=== PATIENT | male | born 1990 | race Caucasian/White ===

== ENCOUNTER 2016-09-05 08:30 | Emergency (ER) | payer MEDICAID ==
[~2016-09-05] VITALS: Ht 177.8 cm; Wt 72.6 kg
[~2016-09-05 08:30] MED LIST: ANAPROX DS550 MG PO; BENTYL10 MG; BENTYL10 MG PO; CALCIUM + D 5001 TAB PO; CIPRODEX 0.3%-7.5 ML OT; CIPROFLOXACIN500 MG PO; EES400 MG PO; FLAGYL500 MG PO; Lopressor25 MG PO; MOTRIN600 MG PO; MOTRIN800 MG PO; NKHM; RONDEC DM 120120 ML PO; TRAMADOL HCL50 MG PO; ULTRAM50 MG PO; VITAMIN D50000 I2; ZANTAC150 MG PO; ZITHROMAX Z PA250 MG PO; ZOFRAN4 MG PO
[2016-09-05 08:41] VITALS: BP 136/84
[2016-09-05 08:54] LABS: BASO % 0.5 % (0.0-1.0); EOS % 0.1 % (1.0-4.0); HEMATOCRIT 42.7 % (42.0-52.0); HEMOGLOBIN 15.1 g/dl (14.0-18.0); LYMPH # 1.7 10*3/uL (1.3-4.4); LYMPH % 21.4 % (27.0-41.0); MEAN CELL VOLUME 82.4 fl (80.0-94.0); MEAN CORPUSCULAR HGB 29.2 pg (27.0-31.0); MEAN CORPUSCULAR HGB CONC 35.4 g/dl (33.0-37.0); MEAN PLATELET VOLUME 9.4 fl (9.6-12.3); MONO # 0.9 10*3/uL (0.1-1.0); MONO % 10.7 % (3.0-9.0); NEUT # 5.3 10*3/uL (2.3-7.9); NEUT % 66.9 % (47.0-73.0); PLATELET COUNT AUTOMATED 192 10*3/uL (130-400); RED BLOOD COUNT 5.18 10*6/uL (4.50-5.90); RED CELL DISTRI WIDTH 12.7 % (0-14.5)
[2016-09-05 09:09] LABS: ALBUMIN 3.8 gm/dl (3.1-4.5); ALKALINE PHOSPHATASE 67 U/L (45-117); BILIRUBIN, TOTAL 0.6 mg/dl (0.2-1.0); BUN 9 mg/dl (7-24); CARBON DIOXIDE 25 mmol/L (21-32); CHLORIDE 102 mmol/L (98-107); EST GLOM FILT AFRICAN AMERICAN > 60 ml/min; GLUCOSE 98 mg/dL (65-99); POTASSIUM 3.1 mmol/L (3.5-5.1); SGOT/AST 16 IU/L (3-35); SGPT/ALT 18 U/L (12-78); SODIUM 137 mmol/L (136-145); TOTAL PROTEIN 7.5 gm/dL (6.4-8.2)
[2016-09-05] MEDS ORDERED: Zofran4 MG PO (10:24)
[2016-09-05 10:48] LABS: BILIRUBIN 1+ (NEGATIVE); BLOOD TRACE-LYSED (NEGATIVE); CLARITY CLEAR (CLEAR); COLOR YELLOW (YELLOW); GLUCOSE NEGATIVE (NEGATIVE); KETONE TRACE (NEGATIVE); LEUKO ESTERASE NEGATIVE (NEGATIVE); NITRITE NEGATIVE (NEGATIVE); PROTEIN TRACE (NEGATIVE); SPECIFIC GRAVITY >= 1.030 (1.005-1.030); UROBILINOGEN 0.2 E.U./dl (0.2-1.0)
[2016-09-05 11:02] LABS: BACTERIA 1+; EPITHELIAL CELLS 0-2; MUCOUS 3+; URINE REFLEX COMMENT YES (NO)
== END 2016-09-05 11:53 | disposition home or self-care (01) ==
LOC: ED 08:30
PROVIDERS: Emergency Medicine
DX: K52.9 Noninfective gastroenteritis and colitis, unspecified (principal); E87.6 Hypokalemia; K92.2 Gastrointestinal hemorrhage, unspecified; I10 Essential (primary) hypertension; E86.0 Dehydration; Z88.0 Allergy status to penicillin; Z88.1 Allergy status to other antibiotic agents; Z88.8 Allergy status to other drugs, medicaments and biological substances

== ENCOUNTER 2018-09-10 01:51 | Emergency (ER) | payer OTHER ==
[~2018-09-10] VITALS: Ht 180.3 cm; Wt 72.6 kg
[2018-09-10 01:51] VITALS: BP 135/72
[~2018-09-10 01:51] MED LIST changes: +Zofran4 MG PO
[2018-09-10] MEDS ORDERED: ONDANSETRON4 MG SL (02:08)
== END 2018-09-10 02:14 | disposition home or self-care (01) ==
LOC: ED 01:51
DX: R11.10 Vomiting, unspecified (principal); F17.200 Nicotine dependence, unspecified, uncomplicated; Z88.0 Allergy status to penicillin; Z88.2 Allergy status to sulfonamides; Z88.8 Allergy status to other drugs, medicaments and biological substances

== ENCOUNTER 2021-12-15 11:27 | Emergency (ER) | payer OTHER ==
[~2021-12-15] VITALS: Wt 81.6 kg
[~2021-12-15 11:27] MED LIST changes: +ONDANSETRON4 MG SL
[2021-12-15 11:30] VITALS: BP 153/90
[2021-12-15 14:50] LABS: BILIRUBIN Negative (Negative); BLOOD Negative (Negative); CLARITY Clear (Clear); COLOR Yellow (Yellow); GLUCOSE Negative (Negative); KETONE Negative (Negative); LEUKO ESTERASE 1+ (Negative); NITRITE Negative (Negative); PH 6.5 (4.5-8.0); SPECIFIC GRAVITY 1.015 (1.001-1.030)
[2021-12-15 15:10] LABS: BACTERIA 1+
[2021-12-15] MEDS ORDERED: LEVOFLOXACIN500 MG PO (15:26)
== END 2021-12-15 15:38 | disposition home or self-care (01) ==
LOC: ED 11:27
PROVIDERS: Internal Medicine
DX: N39.0 Urinary tract infection, site not specified (principal); R31.9 Hematuria, unspecified; Z88.0 Allergy status to penicillin; Z88.2 Allergy status to sulfonamides; Z88.8 Allergy status to other drugs, medicaments and biological substances

== ENCOUNTER 2022-12-13 08:19 | Emergency (ER) | payer OTHER ==
[~2022-12-13] VITALS: Ht 180.3 cm; Wt 81.6 kg
[~2022-12-13 08:19] MED LIST changes: +LEVOFLOXACIN500 MG PO
[2022-12-13 08:24] VITALS: BP 151/85
[2022-12-13] MEDS ORDERED: CLINDAMYCIN HC300 MG PO (08:32)
== END 2022-12-13 08:34 | disposition home or self-care (01) ==
LOC: ED 08:19
DX: J02.9 Acute pharyngitis, unspecified (principal); I10 Essential (primary) hypertension; Z88.0 Allergy status to penicillin; Z88.2 Allergy status to sulfonamides; Z88.8 Allergy status to other drugs, medicaments and biological substances; Z98.890 Other specified postprocedural states

== ENCOUNTER → 2023-01-06 | Outpatient (CLI) | payer OTHER ==
[~2023-01-06] MED LIST changes: +CLINDAMYCIN HC300 MG PO
== END | disposition home or self-care (01) ==
LOC: RAD 10:43
PROVIDERS: ATTEND Family Medicine
DX: M54.42 Lumbago with sciatica, left side (principal)

== ENCOUNTER → 2023-01-19 | Outpatient (CLI) | payer OTHER | END | disposition home or self-care (01) | LOC: RAD 15:50 | PROVIDERS: ATTEND Family Medicine | DX: M54.50 Low back pain, unspecified (principal) ==

== ENCOUNTER 2023-06-08 11:37 | Emergency (ER) | payer OTHER ==
[~2023-06-08] VITALS: Ht 180.3 cm; Wt 90.7 kg
[2023-06-08 12:25] LABS: BASO # 0.1 10*3/uL (0.0-0.1); BASO % 0.7 % (0.0-1.0); EOS # 0.3 10*3/uL (0.0-0.4); EOS % 3.5 % (1.0-4.0); HEMATOCRIT 44.8 % (42.0-52.0); LYMPH # 3.2 10*3/uL (1.3-4.4); LYMPH % 37.6 % (27.0-41.0); MEAN CELL VOLUME 80.7 fl (80.0-94.0); MEAN CORPUSCULAR HGB 27.4 pg (27.0-31.0); MEAN CORPUSCULAR HGB CONC 33.9 g/dl (33.0-37.0); MONO # 0.5 10*3/uL (0.1-1.0); MONO % 5.7 % (3.0-9.0); NEUT # 4.5 10*3/uL (2.3-7.9); NEUT % 52.1 % (47.0-73.0); PLATELET COUNT AUTOMATED 298 10*3/uL (130-400); RED BLOOD COUNT 5.55 10*6/uL (4.50-5.90); RED CELL DISTRI WIDTH 12.7 % (0-14.5); WHITE BLOOD COUNT 8.6 10*3/uL (4.8-10.8)
[2023-06-08 12:50] LABS: ALKALINE PHOSPHATASE 95 U/L (46-116); BUN 5 mg/dl (9-23); CHLORIDE 102 mmol/L (98-107); POTASSIUM 3.8 mmol/L (3.4-5.1); SGPT/ALT 44 U/L (10-49); TOTAL PROTEIN 7.9 gm/dL (6.0-8.0)
[2023-06-08] MEDS ORDERED: NORVASC10 MG PO (13:55)
[2023-06-08 14:01] VITALS: BP 136/97
== END 2023-06-08 14:30 | disposition home or self-care (01) ==
LOC: ED 11:37
PROVIDERS: Nurse Practitioner
DX: I10 Essential (primary) hypertension (principal); R03.0 Elevated blood-pressure reading, without diagnosis of hypertension; F90.9 Attention-deficit hyperactivity disorder, unspecified type; Z88.0 Allergy status to penicillin; Z88.2 Allergy status to sulfonamides; Z88.8 Allergy status to other drugs, medicaments and biological substances; Z98.890 Other specified postprocedural states

== ENCOUNTER 2023-08-28 11:47 | Emergency (ER) | payer OTHER ==
[~2023-08-28] VITALS: Ht 180.3 cm; Wt 90.7 kg
[~2023-08-28 11:47] MED LIST changes: +NORVASC10 MG PO
[2023-08-28 12:26] VITALS: BP 140/97
[2023-08-28] MEDS ORDERED: DOXYCYCLINE HY100 M3 PO (13:01)
== END 2023-08-28 13:09 | disposition home or self-care (01) ==
LOC: ED 11:47
DX: S60.011A Contusion of right thumb without damage to nail, initial encounter (principal); I10 Essential (primary) hypertension; F90.9 Attention-deficit hyperactivity disorder, unspecified type; Z88.0 Allergy status to penicillin; Z88.2 Allergy status to sulfonamides; Z88.8 Allergy status to other drugs, medicaments and biological substances; Z98.890 Other specified postprocedural states; Z87.891 Personal history of nicotine dependence; W51.XXXA Accidental striking against or bumped into by another person, initial encounter; Y93.89 Activity, other specified; Y92.89 Other specified places as the place of occurrence of the external cause; Y99.8 Other external cause status

== ENCOUNTER 2023-10-10 14:54 | Emergency (ER) | payer OTHER ==
[~2023-10-10] VITALS: Ht 180.3 cm; Wt 90.7 kg
[~2023-10-10 14:54] MED LIST changes: +DOXYCYCLINE HY100 M3 PO
[2023-10-10] MEDS ORDERED: ACETAMINOPHEN 325 MG TAB PO ONE (15:10)
[2023-10-10 16:13] LABS: BASO # 0.1 10*3/uL (0.0-0.1); BASO % 0.8 % (0.0-1.0); EOS # 0.3 10*3/uL (0.0-0.4); EOS % 3.6 % (1.0-4.0); HEMATOCRIT 45.2 % (42.0-52.0); LYMPH # 2.2 10*3/uL (1.3-4.4); LYMPH % 30.6 % (27.0-41.0); MEAN CELL VOLUME 82.6 fl (80.0-94.0); MEAN CORPUSCULAR HGB 27.4 pg (27.0-31.0); MEAN CORPUSCULAR HGB CONC 33.2 g/dl (33.0-37.0); MEAN PLATELET VOLUME 9.1 fl (9.6-12.3); MONO # 0.6 10*3/uL (0.1-1.0); MONO % 8.3 % (3.0-9.0); NEUT % 56.3 % (47.0-73.0); PLATELET COUNT AUTOMATED 294 10*3/uL (130-400); RED BLOOD COUNT 5.47 10*6/uL (4.50-5.90); WHITE BLOOD COUNT 7.2 10*3/uL (4.8-10.8)
[2023-10-10 16:35] LABS: ALKALINE PHOSPHATASE 103 U/L (46-116); BUN 7 mg/dl (9-23); CHLORIDE 104 mmol/L (98-107); POTASSIUM 3.7 mmol/L (3.4-5.1); SGPT/ALT 43 U/L (5-49); TOTAL PROTEIN 7.6 gm/dL (6.0-8.0)
[2023-10-10 16:59] VITALS: BP 126/88
[2023-10-10] MEDS ORDERED: NORVASC10 MG PO (17:01)
== END 2023-10-10 17:23 | disposition home or self-care (01) ==
LOC: ED 14:54
PROVIDERS: Physician Assistant Medical
DX: I10 Essential (primary) hypertension (principal); F90.9 Attention-deficit hyperactivity disorder, unspecified type; R51.9 Headache, unspecified; Z88.0 Allergy status to penicillin; Z88.2 Allergy status to sulfonamides; Z88.8 Allergy status to other drugs, medicaments and biological substances; Z98.890 Other specified postprocedural states

== ENCOUNTER 2024-02-14 10:51 | Emergency (ER) | payer OTHER ==
[~2024-02-14] VITALS: Ht 180.3 cm; Wt 95.3 kg
[2024-02-14 10:58] VITALS: BP 136/92
[2024-02-14] MEDS ORDERED: MEDROL DOSEPAK4 MG PO (11:07)
[2024-02-14] MEDS ORDERED: methylPREDNISolone sod succ 125 MG VIAL IM ONE (11:10)
== END 2024-02-14 11:19 | disposition home or self-care (01) ==
LOC: ED 10:51
DX: J02.9 Acute pharyngitis, unspecified (principal); F90.9 Attention-deficit hyperactivity disorder, unspecified type; I10 Essential (primary) hypertension; Z88.0 Allergy status to penicillin; Z88.2 Allergy status to sulfonamides; Z88.8 Allergy status to other drugs, medicaments and biological substances; Z98.890 Other specified postprocedural states

== ENCOUNTER 2025-04-21 19:16 | Emergency (ER) | payer OTHER ==
[~2025-04-21] VITALS: Ht 180.3 cm; Wt 92.5 kg
[~2025-04-21 19:16] MED LIST changes: +MEDROL DOSEPAK4 MG PO
[2025-04-21 19:26] VITALS: BP 148/100
== END 2025-04-21 21:15 | disposition home or self-care (01) ==
LOC: ED 19:16
DX: S86.912A Strain of unspecified muscle(s) and tendon(s) at lower leg level, left leg, initial encounter (principal); I10 Essential (primary) hypertension; Z88.0 Allergy status to penicillin; Z88.2 Allergy status to sulfonamides; Z88.8 Allergy status to other drugs, medicaments and biological substances; Z79.899 Other long term (current) drug therapy; X50.1XXA Overexertion from prolonged static or awkward postures, initial encounter; Y93.61 Activity, american tackle football; Y92.321 Football field as the place of occurrence of the external cause; Y99.8 Other external cause status

== ENCOUNTER → 2025-06-08 | Outpatient (CLI) | payer OTHER ==
[2025-06-08 14:33] LABS: BUN 9 mg/dl (9-23); GAMMA GLUTAMYL TRANSFERASE 45 U/L (0-73); SGPT/ALT 35 U/L (5-49)
== END | disposition home or self-care (01) ==
LOC: LAB 13:19
PROVIDERS: Student in an Organized Health Care Education/Training Program; ATTEND Family Medicine
DX: I10 Essential (primary) hypertension (principal); K52.9 Noninfective gastroenteritis and colitis, unspecified; R74.8 Abnormal levels of other serum enzymes